=== PATIENT | female | born 1950 | race African-American/Black ===

== ENCOUNTER 2019-04-08 10:57 | Inpatient (IN) ==
[2019-04-08] MEDS ORDERED: ONDANSETRON 4 MG/2 ML VIAL IV PRN (13:06)
[2019-04-08] MEDS ORDERED: traZODone 50 MG TABLET PO PRN (13:06)
[2019-04-08] MEDS ORDERED: BISACODYL 5 MG TABLET PO PRN (13:06)
[2019-04-08] MEDS ORDERED: GLUCAGON 1 MG VIAL IM PRN (13:06)
[2019-04-08] MEDS ORDERED: DEXTROSE 50% 25 GM/50 ML VIAL IV PRN (13:06)
[2019-04-08 13:55] LABS: Basophils # 0.1 10*3/uL (0.0-0.2); Basophils % 0.4 % (0.0-0.8); Eosinophils # 0.1 10*3/uL (0.0-0.87); Eosinophils % 0.4 % (0.00-10.9); Hematocrit 30.7 VOL% (35.7-47.0); Hemoglobin 9.7 GM/DL (12.0-16.0); Immature Granulocytes % 0.4 %; Immature Granulocytes Absolute 0.05 #; Lymphocytes # 0.7 10*3/uL (1.4-4.0); Lymphocytes % 5.7 % (21.3-54.2); Mean Corpuscular HGB Conc 31.6 GM/DL (32-36); Mean Corpuscular Volume 77.9 FL (87-102); Mean Platelet Volume 8.7 FL (9.6-12.0); Monocytes % 6.8 % (1.7-12.7); Neutrophils % 86.3 % (38.7-73.9); Platelet Count 496 T/CUMM (130-400); Red Blood Count 3.94 MC/CUMM (3.8-5.5); Red Cell Distribution Width 19.5 % (9.3-17.3)
[2019-04-08 14:14] LABS: Alanine Aminotransferase 10 U/L (13-56); Alkaline Phosphatase 80 U/L (45-117); Aspartate Amino Transferase 26 U/L (0-37); Bilirubin,Total < 0.39 MG/DL (0.2-1.0); Blood Urea Nitrogen 59 MG/DL (7-18); Calcium 8.3 MG/DL (8.5-10.1); Estimated Glom Filtration Rate 11 ML/MIN; Glucose 106 MG/DL (74-106); Osmolality,Calculated 278.7 MOS/KG (273-304); Total Protein 8.2 G/DL (6.4-8.3)
[2019-04-08] MEDS ORDERED: fentaNYL 75 MCG/HR PATCH TRANSDERM SCH (14:30)
[2019-04-08] MEDS ORDERED: cefTRIAXone 1,000 MG in SYRINGE 1 EACH IV ONE (14:51)
[2019-04-08] MEDS: INSULIN REGULAR 100 UNIT/ML SUBCUT SCH (16:23)
[2019-04-08] MEDS: SODIUM CHLORIDE 0.9% 1,000 ML IV SCH (16:23)
[2019-04-08] MEDS ORDERED: ALTEPLASE 2 MG VIAL INTRACATH ONE (16:35)
[2019-04-08] MEDS ORDERED: HEPARIN LOCK FLUSH 500 UNIT/5 ML SYRINGE IV ONE (17:43)
[2019-04-08] MEDS: DOCUSATE SODIUM 100 MG CAPSULE PO SCH (20:16)
[2019-04-08] MEDS ORDERED: ENOXAPARIN 30 MG/0.3 ML SYRINGE SUBCUT SCH (21:00)
[2019-04-08] MEDS: HEPARIN 5,000 UNIT/1 ML VIAL SUBCUT SCH (22:19)
[2019-04-08 23:54] LABS: Apearance,Urine CLOUDY (Clear); Bacteria,Urine Moderate /HPF (Few); Bilirubin,Urine Negative (Negative); Blood, Urine Negative (Negative); Glucose,Urine (UA) Negative (Negative); Ketones,Urine Negative (Negative); Nitrite,Urine Negative (Negative); Protein,Urine 100 MG/DL; Urine Color Yellow (Yellow); Urine Specific Gravity 1.015 (1.001-1.035); Urine Urobilinogen < 2.0 EU/DL (0.2-1.0)
[2019-04-09] MEDS: INSULIN REGULAR 100 UNIT/ML SUBCUT SCH ×5 (01:40→21:45)
[2019-04-09] MEDS: SODIUM CHLORIDE 0.9% 1,000 ML IV SCH ×2 (04:06→21:46)
[2019-04-09] MEDS: HEPARIN 5,000 UNIT/1 ML VIAL SUBCUT SCH ×3 (05:06→21:48)
[2019-04-09] MEDS ORDERED: cefTRIAXone 1,000 MG VIAL IM ONE (06:00)
[2019-04-09] MEDS: oxyCODONE IR 5 MG TABLET PO PRN (06:10)
[2019-04-09 06:52] LABS: Basophils # 0.1 10*3/uL (0.0-0.2); Basophils % 0.5 % (0.0-0.8); Eosinophils # 0.1 10*3/uL (0.0-0.87); Eosinophils % 1.1 % (0.00-10.9); Hematocrit 26.6 VOL% (35.7-47.0); Hemoglobin 8.3 GM/DL (12.0-16.0); Immature Granulocytes % 0.6 %; Immature Granulocytes Absolute 0.06 #; Lymphocytes # 0.9 10*3/uL (1.4-4.0); Lymphocytes % 8.9 % (21.3-54.2); Mean Corpuscular HGB Conc 31.2 GM/DL (32-36); Mean Corpuscular Volume 79.4 FL (87-102); Mean Platelet Volume 8.9 FL (9.6-12.0); Monocytes % 7.2 % (1.7-12.7); Neutrophils % 81.7 % (38.7-73.9); Platelet Count 437 T/CUMM (130-400); Red Blood Count 3.35 MC/CUMM (3.8-5.5); Red Cell Distribution Width 19.7 % (9.3-17.3); White Blood Count 10.1 T/CUMM (4-12)
[2019-04-09 07:22] LABS: Alanine Aminotransferase < 9 U/L (13-56); Albumin 1.6 G/DL (3.4-5.0); Alkaline Phosphatase 70 U/L (45-117); Aspartate Amino Transferase 22 U/L (0-37); Blood Urea Nitrogen 64 MG/DL (7-18); Calcium 7.9 MG/DL (8.5-10.1); Estimated Glom Filtration Rate 9 ML/MIN; Glucose 89 MG/DL (74-106); Osmolality,Calculated 280.5 MOS/KG (273-304)
[2019-04-09] MEDS ORDERED: SODIUM BICARBONATE 50 MEQ/50 ML VIAL IV ONE (08:26)
[2019-04-09] MEDS ORDERED: SODIUM POLYSTYRENE SULFATE 15 GM/60 ML BOTTLE PO ONE ×2 (08:55→15:37)
[2019-04-09] MEDS ORDERED: SODIUM BICARB IV ONE (09:00)
[2019-04-09] MEDS ORDERED: fentaNYL 75 MCG/HR PATCH TRANSDERM SCH (09:00)
[2019-04-09] MEDS ORDERED: CALCIUM GLUCONATE 1,000 MG in SODIUM CHLORIDE 0.9% 100 ML IV ONE (09:00)
[2019-04-09] MEDS ORDERED: DEXTROSE 5% IV ONE (09:00)
[2019-04-09] MEDS: INSULIN REGULAR 100 UNIT/ML IV ONE ×2 (09:18→10:30)
[2019-04-09] MEDS: METOPROLOL SUCCINATE XL 100 MG TABLET PO SCH (09:22)
[2019-04-09] MEDS: LINACLOTIDE 145 MCG CAPSULE PO SCH (09:26)
[2019-04-09] MEDS: DOCUSATE SODIUM 100 MG CAPSULE PO SCH ×2 (09:27→21:45)
[2019-04-09] MEDS: DEXTROSE 10% 250 ML BAG IV ONE ×2 (09:33→10:32)
[2019-04-09] MEDS ORDERED: CALCIUM GLUCONATE 1,000 MG/10 ML VIAL IV ONE (09:55)
[2019-04-09] MEDS ORDERED: DEXTROSE 50% 25 GM/50 ML VIAL IV ONE (09:55)
[2019-04-09] MEDS ORDERED: INSULIN REGULAR 100 UNIT/ML ONE (09:58)
[2019-04-09] MEDS ORDERED: NEOMYCIN/POLYMYXIN IRRIG SOLN 1 ML AMP BLADDERIRR ONE (10:35)
[2019-04-09] MEDS ORDERED: MIDAZOLAM 2 MG/2 ML VIAL IV ONE (11:57)
[2019-04-09] MEDS ORDERED: fentaNYL 100 MCG/2 ML VIAL IV ONE (11:57)
[2019-04-09] MEDS ORDERED: fentaNYL 100 MCG/2 ML VIAL ONE (13:04)
[2019-04-09] MEDS ORDERED: MIDAZOLAM 2 MG/2 ML VIAL ONE (13:05)
[2019-04-09] MEDS ORDERED: SODIUM POLYSTYRENE SULFATE 15 GM/60 ML BOTTLE RECTAL ONE (15:54)
[2019-04-09] MEDS ORDERED: ACETAMINOPHEN 650 MG SUPP RECTAL PRN (17:20)
[2019-04-09] MEDS ORDERED: BENZTROPINE 2 MG/2 ML AMP IV PRN (17:54)
[2019-04-09] MEDS ORDERED: diphenhydrAMINE CAP 25 MG CAPSULE PO PRN (17:54)
[2019-04-09] MEDS ORDERED: chlorproMAZINE INJ 25 MG in SODIUM CHLORIDE 0.9% 100 ML IV PRN (17:54)
[2019-04-09] MEDS ORDERED: guaiFENesin 200 MG/10 ML UDCUP PO PRN (17:54)
[2019-04-09] MEDS ORDERED: PROMETHAZINE INJ 25 MG in SODIUM CHLORIDE 0.9% 50 ML IV PRN (17:54)
[2019-04-09] MEDS ORDERED: chlorproMAZINE INJ 50 MG in SODIUM CHLORIDE 0.9% 100 ML IV PRN (17:54)
[2019-04-09] MEDS ORDERED: LOPERAMIDE 2 MG CAPSULE PO PRN ×2 (17:54)
[2019-04-09] MEDS ORDERED: traMADol 50 MG TABLET PO PRN (17:54)
[2019-04-09] MEDS ORDERED: TEMAZEPAM 7.5 MG CAPSULE PO PRN (17:54)
[2019-04-09] MEDS ORDERED: chlorproMAZINE 25 MG TABLET PO PRN (17:54)
[2019-04-09] MEDS ORDERED: MYLANTA/LIDO VISC 2:1 300 ML BOTTLE SWISH/SPIT PRN (17:54)
[2019-04-09] MEDS ORDERED: MYLANTA/LIDO VISC 2:1 300 ML BOTTLE SWISH/SWAL PRN (17:54)
[2019-04-09] MEDS ORDERED: ACETAMINOPHEN 325 MG TABLET PO PRN (17:54)
[2019-04-09] MEDS ORDERED: LACTULOSE 20 GM/30 ML UDCUP PO PRN (17:54)
[2019-04-09] MEDS ORDERED: ALPRAZolam 0.25 MG TABLET PO PRN (17:54)
[2019-04-09] MEDS ORDERED: ALUMINUM/MAGNES/SIMETH MAX STR 30 ML UDCUP PO PRN (17:54)
[2019-04-09] MEDS ORDERED: MAGNESIUM HYDROXIDE SUSP 30 ML UDCUP PO PRN (17:54)
[2019-04-09 18:17] LABS: Calcium 8.9 MG/DL (8.5-10.1); Osmolality,Calculated 288.1 MOS/KG (273-304)
[2019-04-09 18:44] LABS: Uric Acid 10.4 MG/DL (2.6-6.0)
[2019-04-10 05:51] LABS: Basophils % 0.4 % (0.0-0.8); Hematocrit 24.9 VOL% (35.7-47.0); Hemoglobin 7.9 GM/DL (12.0-16.0); Immature Granulocytes % 0.8 %; Immature Granulocytes Absolute 0.09 #; Lymphocytes # 0.7 10*3/uL (1.4-4.0); Lymphocytes % 6.7 % (21.3-54.2); Mean Corpuscular HGB Conc 31.7 GM/DL (32-36); Mean Corpuscular Volume 78.1 FL (87-102); Mean Platelet Volume 8.7 FL (9.6-12.0); Monocytes % 8.8 % (1.7-12.7); Neutrophils % 83.3 % (38.7-73.9); Platelet Count 425 T/CUMM (130-400); Red Blood Count 3.19 MC/CUMM (3.8-5.5); Red Cell Distribution Width 19.7 % (9.3-17.3); White Blood Count 11.1 T/CUMM (4-12)
[2019-04-10] MEDS: HEPARIN 5,000 UNIT/1 ML VIAL SUBCUT SCH ×3 (05:58→21:41)
[2019-04-10 06:34] LABS: Alanine Aminotransferase < 9 U/L (13-56); Albumin 1.7 G/DL (3.4-5.0); Alkaline Phosphatase 71 U/L (45-117); Aspartate Amino Transferase 23 U/L (0-37); Blood Urea Nitrogen 56 MG/DL (7-18); Calcium 8.2 MG/DL (8.5-10.1); Estimated Glom Filtration Rate 14 ML/MIN; Glucose 137 MG/DL (74-106); Osmolality,Calculated 298.3 MOS/KG (273-304); Total Protein 7.2 G/DL (6.4-8.3)
[2019-04-10] MEDS ORDERED: SODIUM CHLORIDE 0.9% 1,000 ML IV PRN (06:58)
[2019-04-10] MEDS ORDERED: diphenhydrAMINE 50 MG/1 ML VIAL IV ONE (07:18)
[2019-04-10] MEDS ORDERED: ACETAMINOPHEN 325 MG TABLET PO ONE (07:19)
[2019-04-10] MEDS: INSULIN REGULAR 100 UNIT/ML SUBCUT SCH ×4 (07:29→21:37)
[2019-04-10] MEDS ORDERED: fentaNYL 100 MCG/HR PATCH TRANSDERM SCH (09:00)
[2019-04-10] MEDS: METOPROLOL SUCCINATE XL 100 MG TABLET PO SCH (09:04)
[2019-04-10] MEDS: LINACLOTIDE 145 MCG CAPSULE PO SCH (09:07)
[2019-04-10] MEDS: DOCUSATE SODIUM 100 MG CAPSULE PO SCH ×2 (09:07→21:37)
[2019-04-10] MEDS: oxyCODONE IR 5 MG TABLET PO PRN (09:21)
[2019-04-10] MEDS: MORPHINE ER 15 MG TABLET PO SCH ×2 (09:35→21:41)
[2019-04-10] MEDS: SODIUM CHLORIDE 0.9% 1,000 ML IV SCH (16:09)
[2019-04-11 05:59] LABS: Basophils % 0.3 % (0.0-0.8); Eosinophils # 0.2 10*3/uL (0.0-0.87); Eosinophils % 1.3 % (0.00-10.9); Hematocrit 31.4 VOL% (35.7-47.0); Hemoglobin 10.1 GM/DL (12.0-16.0); Immature Granulocytes % 0.9 %; Lymphocytes # 0.9 10*3/uL (1.4-4.0); Mean Corpuscular HGB Conc 32.2 GM/DL (32-36); Mean Corpuscular Volume 80.5 FL (87-102); Mean Platelet Volume 9.1 FL (9.6-12.0); Monocytes % 7.2 % (1.7-12.7); Neutrophils % 82.3 % (38.7-73.9); Platelet Count 389 T/CUMM (130-400); Red Cell Distribution Width 19.4 % (9.3-17.3); White Blood Count 11.6 T/CUMM (4-12)
[2019-04-11] MEDS: SODIUM CHLORIDE 0.9% 1,000 ML IV SCH ×2 (06:08→17:38)
[2019-04-11] MEDS: MORPHINE 4 MG/1 ML VIAL IV PRN (06:12)
[2019-04-11 06:15] LABS: Alanine Aminotransferase < 9 U/L (13-56); Albumin 1.6 G/DL (3.4-5.0); Alkaline Phosphatase 67 U/L (45-117); Aspartate Amino Transferase 20 U/L (0-37); Blood Urea Nitrogen 29 MG/DL (7-18); Calcium 7.6 MG/DL (8.5-10.1); Estimated Glom Filtration Rate 41 ML/MIN; Glucose 86 MG/DL (74-106); Total Protein 6.8 G/DL (6.4-8.3)
[2019-04-11] MEDS: HEPARIN 5,000 UNIT/1 ML VIAL SUBCUT SCH ×3 (06:16→21:10)
[2019-04-11] MEDS: INSULIN REGULAR 100 UNIT/ML SUBCUT SCH ×4 (07:36→21:10)
[2019-04-11] MEDS: MORPHINE ER 15 MG TABLET PO SCH ×2 (08:15→20:52)
[2019-04-11] MEDS: LINACLOTIDE 145 MCG CAPSULE PO SCH (08:15)
[2019-04-11] MEDS: DOCUSATE SODIUM 100 MG CAPSULE PO SCH ×2 (08:16→20:53)
[2019-04-11] MEDS: METOPROLOL SUCCINATE XL 100 MG TABLET PO SCH (08:16)
[2019-04-11] MEDS: MAGNESIUM SULFATE 1 GM/2 ML VIAL IM SCH ×3 (10:30→20:52)
[2019-04-12] MEDS: MORPHINE 4 MG/1 ML VIAL IV PRN ×2 (02:11→07:16)
[2019-04-12 06:11] LABS: Osmolality,Calculated 277.7 MOS/KG (273-304)
[2019-04-12 06:14] LABS: Basophils % 0.1 % (0.0-0.8); Eosinophils % 0.1 % (0.00-10.9); Hematocrit 34.2 VOL% (35.7-47.0); Hemoglobin 10.9 GM/DL (12.0-16.0); Immature Granulocytes % 0.9 %; Immature Granulocytes Absolute 0.13 #; Lymphocytes # 0.8 10*3/uL (1.4-4.0); Lymphocytes % 5.4 % (21.3-54.2); Mean Corpuscular HGB Conc 31.9 GM/DL (32-36); Mean Corpuscular Volume 80.5 FL (87-102); Mean Platelet Volume 8.5 FL (9.6-12.0); Monocytes % 6.4 % (1.7-12.7); Neutrophils % 87.1 % (38.7-73.9); Platelet Count 405 T/CUMM (130-400); Red Blood Count 4.25 MC/CUMM (3.8-5.5); Red Cell Distribution Width 19.4 % (9.3-17.3)
[2019-04-12] MEDS: HEPARIN 5,000 UNIT/1 ML VIAL SUBCUT SCH ×2 (07:06→14:25)
[2019-04-12] MEDS: SODIUM CHLORIDE 0.9% 1,000 ML IV SCH (07:22)
[2019-04-12] MEDS: POTASSIUM CHLORIDE RIDER 20 MEQ in PREMIX 1 EACH IV PRN ×2 (09:43→14:24)
[2019-04-12] MEDS: oxyCODONE IR 5 MG TABLET PO PRN (09:45)
[2019-04-12] MEDS: METOPROLOL SUCCINATE XL 100 MG TABLET PO SCH (09:45)
[2019-04-12] MEDS: DOCUSATE SODIUM 100 MG CAPSULE PO SCH (09:46)
[2019-04-12] MEDS: LINACLOTIDE 145 MCG CAPSULE PO SCH (09:46)
[2019-04-12] MEDS ORDERED: POTASSIUM CHLORIDE RIDER 10 MEQ in PREMIX 1 EACH IV PRN (10:17)
[2019-04-12] MEDS: INSULIN REGULAR 100 UNIT/ML SUBCUT SCH ×2 (11:34→14:24)
[2019-04-12] MEDS: MORPHINE ER 15 MG TABLET PO SCH (15:28)
[2019-04-12 16:49] VITALS: BP 98/62
== END 2019-04-12 18:04 | disposition hospice, home (50) | DRG 687 ==
LOC: N.4E → SUATTDRO 13:06
PROVIDERS: ADMIT Internal Medicine; ATTEND Internal Medicine